=== PATIENT | male | born 1995 | race Caucasian/White ===

== ENCOUNTER 2016-06-03 08:01 | Emergency (ER) | payer OTHER ==
[~2016-06-03] VITALS: Ht 188 cm; Wt 96.1 kg
[~2016-06-03 08:01] MED LIST: DEXA1TAB5 PO; DEXA4TAB PO; FAMO-79 PO; LEVE100020 PO; LEVE500T53 PO; OXYC-302 PO; TRIA0.25 PO
[2016-06-03] MEDS ORDERED: LORazepam 2 MG/ML, 1ML ONE (08:25)
[2016-06-03] MEDS ORDERED: LORazepam 2 MG/ML, 1ML IVPush ONE (08:30)
[2016-06-03] MEDS ORDERED: SODIUM CHLORIDE 0.9% 1,000ML IVBOLUS ONE (08:30)
[2016-06-03] MEDS ORDERED: SODIUM CHLORIDE FLUSH 10ML SYR IVF ONE (08:30)
[2016-06-03 08:47] LABS: HEMOGLOBIN 16.1 g/dL (13.7-18.0)
[2016-06-03 08:59] LABS: BLOOD UREA NITROGEN 15 mg/dL (7-18)
[2016-06-03 09:07] LABS: ACETAMINOPHEN < 2 mcg/mL (10-30)
[2016-06-03] MEDS ORDERED: LEVETIRACETAM 1,000 MG in SODIUM CHLORIDE 0.9% 100 ML IV ONE (10:00)
[2016-06-03 12:09] VITALS: BP 118/68
== END 2016-06-03 12:12 | disposition home or self-care (01) ==
LOC: ED 09:35
DX: R56.9 Unspecified convulsions (principal)
CPT/HCPCS: 36415; 70450; 80048; 80307; 80329; 82040; 83605; 85025; 93005; 96361; 96365; 96375; 99285; J1953; J2060; J7030; G0480

== ENCOUNTER 2017-05-05 13:19 | Emergency (ER) | payer OTHER ==
[~2017-05-05] VITALS: Ht 188 cm; Wt 100.0 kg
[2017-05-05 14:45] VITALS: BP 131/74
== END 2017-05-05 16:36 | disposition home or self-care (01) ==
LOC: ED 14:41
DX: G43.909 Migraine, unspecified, not intractable, without status migrainosus (principal)
CPT/HCPCS: 36415; 70450; 80177; 99285